=== PATIENT | male | born 1950 | race Asian ===

== ENCOUNTER 2019-09-25 16:22 | Emergency (ER) | payer OTHER ==
[~2019-09-25] VITALS: Ht 177.8 cm; Wt 68.9 kg
[2019-09-25] MEDS ORDERED: TETRACAINE HCL/PF 0.5% OPHTHALMIC DROPS 4 ML OP ONE (16:23)
[2019-09-25] MEDS ORDERED: FLUORESCEIN SODIUM 1 MG OPHTHALMIC STRIP OP ONE (16:23)
[2019-09-25 16:32] VITALS: BP_SYST 146
--- NOTE | 2019-09-25 16:35 | NUR ---
Katya birch in [facility] - 09/25/19 at 1636 by [email or web address] Patient to bed 05 to mark for evaluation. Side rails up.
--- NOTE | 2019-09-25 16:35 | NUR ---
Patient to ER bed 08 to gown for evaluation. Side rails up.
--- NOTE | 2019-09-25 16:50 | NUR ---
Patient presented to ER C/O foreign object in left eye . Patient A&Ox4, ambulatory to ER, afebrile, skin pink and warm, pain 0/10 , denies N/V/D. Patient states he has eye irritation to left eye since yesterday & was seen at [facility]D office today, referred to ER.
[2019-09-25 17:39] VITALS: BP_SYST 141
--- NOTE | 2019-09-25 17:39 | NUR ---
Patient given written and verbal discharge instructions and verbalizes understanding. ER MD discussed with patient the results and treatment provided. Patient in stable condition. ID arm band removed. Rx of polytrim given. Patient educated on pain management and to follow up with PMD. Pain Scale 0/10. Opportunity for questions provided and answered. Medication side effect fact sheet provided.
== END 2019-09-25 17:39 | disposition home or self-care (01) ==
LOC: SED 16:22
DX: S05.02XA Injury of conjunctiva and corneal abrasion without foreign body, left eye, initial encounter (principal); S00.202A Unspecified superficial injury of left eyelid and periocular area, initial encounter; X58.XXXA Exposure to other specified factors, initial encounter; Y93.89 Activity, other specified; Y92.9 Unspecified place or not applicable; Y99.8 Other external cause status
CPT/HCPCS: 99284